=== PATIENT | female | born 1940 | race Caucasian/White ===

== ENCOUNTER 2024-01-13 19:13 | Inpatient (IN) | payer MEDICARE, OTHER ==
[~2024-01-13] VITALS: Ht 154.9 cm; Wt 65.3 kg
[2024-01-13 19:56] LABS: BASOPHILS % (AUTO) 0.1 % (0.0-2.0); HEMATOCRIT 29 % (33-45); HEMOGLOBIN 8.9 g/dL (11.5-14.8); LYMPHOCYTES # (AUTO) 0.4 K/uL (0.8-4.8); LYMPHOCYTES % (AUTO) 3.3 % (20.0-44.0); MEAN CORPUSCULAR HEMOGLOBIN 26 PG (26.0-33.0); MEAN CORPUSCULAR HGB CONC 31 g/dl (31.0-36.0); MEAN CORPUSCULAR VOLUME 84 fL (82-100); MONOCYTES # (AUTO) 0.3 K/uL (0.1-1.30); NEUTROPHILS # (AUTO) 12.5 K/uL (1.8-8.9); NEUTROPHILS % (AUTO) 94.6 % (43.0-81.0); PLATELET COUNT (AUTO) 355 K/uL (150-450); RED BLOOD CELL COUNT(AUTO) 3.41 MIL/uL (4.0-5.2); WHITE BLOOD COUNT (AUTO) 13.2 K/uL (4.3-11.0)
[2024-01-13 20:06] LABS: CALCIUM, SERUM 8.5 mg/dL (8.5-10.1); CARBON DIOXIDE 30 mmol/L (21-32); CHLORIDE 107 mmol/L (98-107); GLUCOSE 122 mg/dL (74-106); POTASSIUM 4.4 mmol/L (3.5-5.1); SODIUM SERUM 145 mmol/L (136-145); UREA NITROGEN, BLOOD 20 mg/dL (7-18)
[2024-01-13 20:18] LABS: ALANINE AMINOTRANSFERASE 16 U/L (12-78); ALKALINE PHOSPHATASE 73 U/L (46-116); ASPARTATE AMINOTRANSFERASE 12 U/L (15-37); BILIRUBIN,DIRECT 0.2 mg/dL (0.0-0.2); BILIRUBIN,TOTAL 0.8 mg/dL (0.2-1.0); NT-PRO BNP 4174 pg/mL (0-125); TOTAL PROTEIN, SERUM 7.5 g/dL (6.4-8.2)
[2024-01-13 20:32] LABS: INR 1.31 (0.91-1.10); PARTIAL THROMBOPLASTIN TIME 27.9 SEC (24.3-34.3); PROTHROMBIN TIME 13.6 SECS (9.2-11.1)
[2024-01-13] MEDS: FUROSEMIDE 40 MG/4 ML VIAL IV ONE (21:02)
[2024-01-13] MEDS ORDERED: Z GUARD REMEDY 4 OZ OINT TP PRN (22:00)
[2024-01-13] MEDS ORDERED: MAG HYDROX/AL HYDROX/SIMETH 30 ML UDC PO PRN (22:00)
[2024-01-13] MEDS ORDERED: HYDROCODONE/APAP 5/325MG TABLET PO PRN (22:00)
[2024-01-13] MEDS ORDERED: DEXTROSE 50%-WATER 50 ML DISP.SYRIN IV PRN (22:00)
[2024-01-13] MEDS ORDERED: TEMAZEPAM 15 MG CAPSULE PO PRN (22:00)
[2024-01-13] MEDS ORDERED: MAGNESIUM HYDROXIDE 30 ML UDC PO PRN (22:00)
[2024-01-13] MEDS ORDERED: ONDANSETRON HCL/PF 4 MG/2 ML VIAL IVP PRN (22:00)
[2024-01-13] MEDS: INSULIN REGULAR, HUMAN 100 UNIT/ML 3 ML VIAL SQ PRN (23:14)
[2024-01-13] MEDS: BLOOD SUGAR DIAGNOSTIC 1 EACH STRIP IN SCH (23:14)
[2024-01-13 23:45] VITALS: BP 151/84; TEMP 99.1; O2SAT 97
[2024-01-14 04:00] VITALS: BP 124/78; TEMP 98.6
[2024-01-14 05:03] VITALS: BP 124/78; TEMP 98.6; O2SAT 97
[2024-01-14] MEDS: PANTOPRAZOLE 40 MG TABLET.DR PO SCH (06:42)
[2024-01-14 06:48] LABS: BASOPHILS % (AUTO) 0.1 % (0.0-2.0); HEMATOCRIT 26 % (33-45); HEMOGLOBIN 8.2 g/dL (11.5-14.8); LYMPHOCYTES # (AUTO) 0.5 K/uL (0.8-4.8); LYMPHOCYTES % (AUTO) 5.1 % (20.0-44.0); MEAN CORPUSCULAR HEMOGLOBIN 27 PG (26.0-33.0); MEAN CORPUSCULAR HGB CONC 32 g/dl (31.0-36.0); MEAN CORPUSCULAR VOLUME 85 fL (82-100); MONOCYTES # (AUTO) 0.2 K/uL (0.1-1.30); MONOCYTES % (AUTO) 1.9 % (2.0-12.0); NEUTROPHILS # (AUTO) 9.8 K/uL (1.8-8.9); NEUTROPHILS % (AUTO) 92.9 % (43.0-81.0); PLATELET COUNT (AUTO) 278 K/uL (150-450); RED BLOOD CELL COUNT(AUTO) 3.05 MIL/uL (4.0-5.2); RED CELL DISTRIBUTION WIDTH 19.7 % (11.5-15.0); WHITE BLOOD COUNT (AUTO) 10.5 K/uL (4.3-11.0)
[2024-01-14 07:06] LABS: CALCIUM, SERUM 8.3 mg/dL (8.5-10.1); CARBON DIOXIDE 29 mmol/L (21-32); CHLORIDE 108 mmol/L (98-107); CREATININE 0.9 mg/dL (0.6-1.3); GLUCOSE 106 mg/dL (74-106); MAGNESIUM 1.8 mg/dL (1.8-2.4); PHOSPHORUS 2.6 mg/dL (2.5-4.9); POTASSIUM 4.4 mmol/L (3.5-5.1); SODIUM SERUM 143 mmol/L (136-145); UREA NITROGEN, BLOOD 18 mg/dL (7-18)
[2024-01-14 07:27] LABS: CHOLESTEROL 185 mg/dL (<200); HDL CHOLESTEROL 68 mg/dL (40-60); LDL 86 mg/dL (0-99); TRIGLYCERIDES 192 mg/dL (30-150)
[2024-01-14] MEDS ORDERED: METO25TA6 PO (08:42)
[2024-01-14] MEDS ORDERED: RIVA15TA PO (08:42)
[2024-01-14] MEDS ORDERED: METF-440 PO (08:42)
[2024-01-14 09:00] VITALS: BP 113/69; TEMP 98.8; O2SAT 97
[2024-01-14] MEDS: FUROSEMIDE 40 MG/4 ML VIAL IV SCH (09:00)
[2024-01-14 13:00] VITALS: BP 121/66; TEMP 98; O2SAT 97
[2024-01-14 17:00] VITALS: BP 123/65; TEMP 98.4; O2SAT 96
[2024-01-14 21:00] VITALS: BP 144/82; TEMP 98.9; O2SAT 96
[2024-01-15] VITALS (7 sets, daily range): BP systolic 124–147; BP diastolic 59–99; TEMP 97.6–99.9; O2SAT 93–99
[2024-01-15 08:30] LABS: CALCIUM, SERUM 8.6 mg/dL (8.5-10.1); CARBON DIOXIDE 31 mmol/L (21-32); CHLORIDE 102 mmol/L (98-107); CREATININE 0.9 mg/dL (0.6-1.3); GLUCOSE 109 mg/dL (74-106); POTASSIUM 4.4 mmol/L (3.5-5.1); SODIUM SERUM 138 mmol/L (136-145); UREA NITROGEN, BLOOD 15 mg/dL (7-18)
[2024-01-15 08:31] LABS: BASOPHILS % (AUTO) 0.1 % (0.0-2.0); EOSINOPHILS % (AUTO) 0.3 % (0.0-6.0); HEMATOCRIT 30 % (33-45); HEMOGLOBIN 9.6 g/dL (11.5-14.8); LYMPHOCYTES # (AUTO) 0.6 K/uL (0.8-4.8); LYMPHOCYTES % (AUTO) 5.6 % (20.0-44.0); MEAN CORPUSCULAR HEMOGLOBIN 28 PG (26.0-33.0); MEAN CORPUSCULAR HGB CONC 33 g/dl (31.0-36.0); MEAN CORPUSCULAR VOLUME 84 fL (82-100); MONOCYTES # (AUTO) 0.1 K/uL (0.1-1.30); NEUTROPHILS # (AUTO) 9.4 K/uL (1.8-8.9); PLATELET COUNT (AUTO) 256 K/uL (150-450); RED BLOOD CELL COUNT(AUTO) 3.51 MIL/uL (4.0-5.2); WHITE BLOOD COUNT (AUTO) 10.1 K/uL (4.3-11.0)
[2024-01-15 13:54] LABS: PROTEIN, BODY FLUID 3.2 G/DL
[2024-01-15 15:16] LABS: APPEARANCE,SPUN,BODY FLUID CLEAR (CLEAR)
[2024-01-15 15:17] LABS: TOTAL VOLUME,BODY FLUID 1150 mL; WBC, BODY FLUID 227 /cu. mm. (0-200)
[2024-01-15] MEDS: ACETAMINOPHEN 325 MG TABLET PO PRN (17:04)
[2024-01-15 17:50] LABS: POLYNUCLEAR, BODY FLUID 12 % (0-25)
[2024-01-16 01:00] VITALS: BP 122/99; TEMP 98.4; O2SAT 99
[2024-01-16 05:00] VITALS: BP 147/102; TEMP 97.8; O2SAT 100
[2024-01-16 08:00] VITALS: BP 131/54; TEMP 97.8; O2SAT 96
[2024-01-16] MEDS: METOPROLOL TARTRATE 50 MG TABLET PO SCH (09:09)
[2024-01-16] MEDS: METFORMIN 500 MG TABLET PO SCH (09:30)
[2024-01-16] MEDS ORDERED: METOPROLOL TARTRATE 25 MG TABLET PO SCH (09:30)
[2024-01-16] MEDS: RIVAROXABAN 15 MG TABLET PO SCH (10:09)
[2024-01-16 10:56] LABS: THYROID STIMULATING HORMONE 0.87 uIU/mL (0.358-3.74)
[2024-01-16 12:00] VITALS: BP 147/95; TEMP 98.2; O2SAT 99
== END 2024-01-16 14:16 | disposition home health service (06) | DRG 754 ==
LOC: ER 19:23 → TELE1 21:14
PROVIDERS: ADMIT Nurse Practitioner Acute Care; ATTEND Internal Medicine
PROC: 0W9B3ZZ Drainage of Left Pleural Cavity, Percutaneous Approach (ICD-10-PCS; principal; 2024-01-15)
DX: C56.9 Malignant neoplasm of unspecified ovary (principal); J96.01 Acute respiratory failure with hypoxia; I50.30 Unspecified diastolic (congestive) heart failure; J91.0 Malignant pleural effusion; E44.0 Moderate protein-calorie malnutrition; J98.11 Atelectasis; I48.20 Chronic atrial fibrillation, unspecified; I11.0 Hypertensive heart disease with heart failure; D63.8 Anemia in other chronic diseases classified elsewhere; E11.9 Type 2 diabetes mellitus without complications; E88.09 Other disorders of plasma-protein metabolism, not elsewhere classified; Z68.27 Body mass index [BMI] 27.0-27.9, adult; Z79.60 Long term (current) use of unspecified immunomodulators and immunosuppressants; Z79.01 Long term (current) use of anticoagulants
CPT/HCPCS: 36415; 71045-TC; 80048-TC; 80061-TC; 80076-TC; 82728-TC; 82962-TC; 83540-TC; 83735-TC; 83880; 84100-TC; 84439-TC; 84443-TC; 84484-TC; 85025-TC; 85730-TC; 86850-TC; 87102-TC; 89051-TC; 93307-TC; 94799-TC; G0378; J1815; J1940